=== PATIENT | male | born 1960 | race Caucasian/White ===

== ENCOUNTER → 2017-03-14 | Day surgery (SDC) | payer OTHER ==
[~2017-03-14] MED LIST: Brimonidine 0.2% Ophth Soln 5 ML Bottle EYELF SCH; Phenylephrine 2.5% Ophth Soln 2 ML Bot EYELF SCH
[2017-03-14 14:31] VITALS: BP 146/93
== END ==
LOC: JD.SDS 12:28
PROVIDERS: ATTEND Ophthalmology
DX: H26.492 Other secondary cataract, left eye (principal); H35.372 Puckering of macula, left eye; H25.811 Combined forms of age-related cataract, right eye; H02.831 Dermatochalasis of right upper eyelid; H02.834 Dermatochalasis of left upper eyelid; H31.092 Other chorioretinal scars, left eye; I10 Essential (primary) hypertension; E78.00 Pure hypercholesterolemia, unspecified; Z98.42 Cataract extraction status, left eye; Z96.1 Presence of intraocular lens; Z79.899 Other long term (current) drug therapy; Z79.82 Long term (current) use of aspirin

== ENCOUNTER 2021-09-16 10:49 | Day surgery (SDC) | payer BC, OTHER ==
[2021-09-16] MEDS: Polymyxin B/Trimethoprim 10 ML Bottle EYERT SCH ×4 (11:13→13:13)
[2021-09-16] MEDS: Brimonidine 0.2% Ophth Soln 5 ML Bottle EYERT SCH ×4 (11:17→13:13)
[2021-09-16] MEDS: Phenylephrine 2.5% Ophth Soln 2 ML Bot EYERT SCH ×6 (11:23→13:12)
[2021-09-16] MEDS: Tropicamide 1% Ophth Soln 15 ML Bottle EYERT SCH ×4 (11:28→12:10)
[2021-09-16] MEDS: Tetracaine HCl/PF 0.5% 4 ML Bottle EYEBOTH SCH ×5 (12:26→13:12)
[2021-09-16] MEDS: Lidocaine 1% PF 2 ML SDV INJECT SCH ×2 (12:46→13:13)
[2021-09-16] MEDS: Cefuroxime 10 MG/ML SYRINGE EYERT SCH ×2 (12:57→13:13)
[2021-09-16] MEDS: Pilocarpine 4% Ophth Soln 15 ML Bot EYERT SCH ×2 (12:58→13:13)
[2021-09-16 13:28] VITALS: BP 169/98; PULSE 52
== END 2021-09-16 13:17 | disposition home or self-care (01) ==
LOC: JD.SDS 10:49
PROVIDERS: ATTEND Ophthalmology
DX: E11.36 Type 2 diabetes mellitus with diabetic cataract (principal); H25.811 Combined forms of age-related cataract, right eye; H31.093 Other chorioretinal scars, bilateral; H35.372 Puckering of macula, left eye; E78.00 Pure hypercholesterolemia, unspecified; I10 Essential (primary) hypertension; Z98.890 Other specified postprocedural states; Z79.82 Long term (current) use of aspirin; Z79.899 Other long term (current) drug therapy
CPT/HCPCS: 66984; 82947; J0697; C1780